=== PATIENT | male | born 1950 | race Caucasian/White ===

== ENCOUNTER → 2020-03-29 09:50 | Outpatient (CLI) | payer OTHER ==
[2019-09-18 12:54] VITALS: BMI 40.0
[~2020-03-29 09:50] MED LIST: BAYER CHEWABLE81 MG PO; BUMEX2 MG PO; FLOMAX0.4 MG PO; GLUCOPHAGE1000 MG PO; K-DUR20 MEQ PO; LEVOTHYROXINE175 MCG PO; LIPITOR40 MG PO; LISINOPRIL10 MG PO; LOPRESSOR25 MG PO; MULTIGEN FOLIC1 EACH PO; NOVOLIN R100 U/ML SC; PLAVIX75 MG PO; REQUIP0.25 MG PO; TOUJEO SOL300 UNIT/1 SC
== END | disposition home or self-care (01) ==
LOC: D.LAB 09:50
PROVIDERS: ATTEND Internal Medicine Pulmonary Disease
DX: J44.9 Chronic obstructive pulmonary disease, unspecified (principal)

== ENCOUNTER → 2020-03-31 12:46 | Outpatient (CLI) | payer OTHER ==
[2019-09-18 12:54] VITALS: BMI 40.0
[2020-03-31 14:27] LABS: BASOPHILS 0 % (0-2); EOSINOPHILS 4.1 % (0-7); HEMATOCRIT 37.7 % (42.0-54.0); HEMOGLOBIN 10.7 g/dL (13.5-17.5); IMMATURE GRANULOCYTES 0.5 % (0-5); LYMPHOCYTES 11.3 % (15-50); MCH 25.4 pg (26.0-34.0); MCHC 28.4 g/dL (31.0-37.0); MCV 89.3 fL (80.0-100.0); MEAN PLATELET VOLUME 9.2 fL (7.4-10.4); MONOCYTES 7.8 % (2-11); NEUTROPHILS 76.3 % (40-80); PLATELET COUNT 199 10x3/uL (130-400); RBC 4.22 10x6/uL (4.20-6.10); RDW 16.1 % (11.5-14.5); WBC 8.1 10x3/uL (4.8-10.8)
== END | disposition home or self-care (01) ==
LOC: D.RT 03-17 14:00
PROVIDERS: ATTEND Internal Medicine Pulmonary Disease
DX: J44.9 Chronic obstructive pulmonary disease, unspecified (principal); D64.9 Anemia, unspecified; Z13.9 Encounter for screening, unspecified